=== PATIENT | female | born 1985 | race Caucasian/White ===

== ENCOUNTER 2020-01-12 12:59 | Emergency (ER) | payer SELFPAY ==
[2020-01-12 13:37] VITALS: BP 129/87; PULSE 59; RESP 14; TEMP 36.9; O2SAT 98; BMI 24.0
--- NOTE | 2020-01-12 14:42 | ED_ITS ---
HPI - Wound/Laceration General: Chief Complaint: Wound/Laceration Stated Complaint: finger lac Time Seen by Provider: 01/12/20 14:41 Source: patient Mode of arrival: ambulatory Limitations: no limitations History of Present Illness: HPI narrative: while at work pt had metal piece of jeane slice righg index finger Review of Systems General: Reports: 10 or more systems reviewed and unremarkable except in HPI and below Narrative: laceration to index finger, right PFSH ED PFSH: Social History Smoking and tobacco status: never smoked Physical Exam Const: COMMON NORMALS: no acute distress, patient oriented x3, no limitations and alert GENERAL APPEARANCE: cooperative and comfortable ORIENTATION/CONSCIOUSNESS: Yes awake, Yes oriented to person, Yes oriented to place and Yes oriented to time HENMT: COMMON NORMALS: normocephalic, atraumatic, external ears normal, EAC's normal, TM's normal bilaterally and Normal external nose present HEAD & SCALP: normal to inspection, normocephalic and atraumatic FACE & SINUS: normal facial exam, sinuses nontender and face symmetric NOSE: Normal external nose present, Normal nares present and No nasal discharge present EXTERNAL EAR: Yes external ears normal EXTERNAL AUDITORY CANAL: EAC's normal TYMPANIC MEMBRANE: TM's normal bilaterally MOUTH: Normal oral and palatal mucosa present, lip normal and tongue normal THROAT: posterior oropharynx normal, tonsils normal and uvula midline Eye: COMMON NORMALS: Equal, round and reactive pupils present, EOMs intact bilaterally and conjunctivae normal GENERAL EYE: appearance normal, both eyes and all related structures and normal light reflex EYELID: eyelids normal CONJUNCTIVA: Yes conjunctivae normal PUPIL: Yes Equal, round and reactive pupils present EOM: Yes EOM abnormal DIRECT OPHTHALMOSCOPY: Yes normal light reflex Neck/C-Spine: COMMON NORMALS: full ROM, no lymphadenopathy, supple, no meningeal signs, no JVD and Thyroid normal GENERAL: Yes normal visual inspection THYROID: Thyroid normal CERVICAL SPINE: Yes cervical ROM normal and Yes normal cervical lordosis Lymph: LYMPHATIC: no lymphadenopathy noted Chest: COMMONS NORMALS: normal inspection of the chest and normal palpation of entire chest wall Resp: COMMON NORMALS: normal respiratory effort, No retractions and clear to auscultation bilaterally AUSCULTATION: clear to auscultation bilaterally Cardio: COMMON NORMALS: no JVD, regular rate, regular rhythm, S1 normal heart sound present, S2 normal heart sound present, No gallops present (Cardio), No clicks present (Cardio), No murmurs present (Cardio), No rub (Cardio) and Peripheral pulses 2+ throughout RATE: regular rate RHYTHM: regular rhythm HEART SOUNDS: S1 normal heart sound present and S2 normal heart sound present PERIPHERAL PULSES: Peripheral pulses 2+ throughout GI: COMMON NORMALS: Normal to inspection, nondistended, normoactive bowel sounds present, Soft to palpation, non-tender and no masses PALPATION: Yes Soft to palpation : COMMON NORMALS: Yes no CVA tenderness and Yes normal external appearance BLADDER/KIDNEY EXAM: Yes no CVA tenderness Back/Pelvis: COMMON NORMALS: no CVA tenderness, thoracic and lumbar spine normal to inspection, no thoracic nor lumbar tenderness and thoraco-lumbar ROM normal Extremity: COMMON NORMALS: normal to inspection, full ROM, capillary refill normal, no joint enlargement, no clubbing, cyanosis or edema, no calf tenderness and no pedal edema GENERAL: Yes normal exam except as noted Neuro: COMMON NORMALS: patient oriented x3, moves all extremities, no focal motor deficits, no sensory deficits noted and gait normal SENSORIUM/ORIENTATION: Yes alert, Yes oriented to person, Yes oriented to place and Yes oriented to time MENINGEAL SIGNS: Yes no meningeal signs Psych: COMMON NORMALS: mental status grossly normal, Normal thought process present, cooperative, normal affect, speech normal and activity/motor behavior normal SPEECH: Yes normal speech THOUGHT PROCESS: Normal thought process present Skin: COMMON NORMALS: no rashes or lesions noted, no wounds and turgor normal GENERAL SKIN EXAM: no rashes or lesions noted and turgor normal TRAUMA: laceration (right index finger ) flap Procedures Laceration Laceration 1: Site: hand (right index finger) Side (If applicable): right Size (cm): 3 Description: flap Depth: simple, single layer Local Anesthetic: lidocaine 1% Amount of anesthesia used (mL): 5 Pre-repair: wound explored, irrigated extensively and deep structures intact Skin layer closed with: nylon Size (cm): 4-0 Number of sutures: 6 Technique: simple, interrupted Course ED course: Pt presents to Er with laceration to right index finger from metal roof piece that fell onto her hand; 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 Sutures completed and pt tolerated well. Will proceed with DC and follow up for suture removal in one week. Vital Signs: Vital signs: Vital Signs Temperature 98.5 F 01/12/20 13:37 Pulse Rate 59 L 01/12/20 13:37 Respiratory Rate 14 01/12/20 13:37 Blood Pressure 129/87 01/12/20 13:37 Pulse Oximetry 98 01/12/20 13:37 Discharge Plan Discharge Patient Disposition: Home, Self-Care Clinical Impression: Laceration Condition: Stable Prescriptions: No Action No Known Home Medications RF: 0 Referrals: Marcelle Steiner FNP-C [Primary Care Provider] - Discharge Diet: Usual diet Discharge Activity: Increase activity as tolerated Activity Restrictions/Additional Instructions: Do not go swimming with sutures; keep dry and covered with bacitracin. May have sutures removed in 5 to 7 day. Coding Level of Care Code ED Spline Rolling Machine Job Setter for Alysa Vale
[2020-01-12] MEDS: lidocaine 1% INJ 20 mL INJECTION (14:57)
[2020-01-12 15:36] VITALS: PULSE 68; RESP 18; TEMP 36.6
[2020-01-12] MEDS: neomycin-poly-bacitracin oint 0.9 gm Pkt 1 APPLIC TOPICAL (15:42)
[2020-01-12 16:04] VITALS: PULSE 68; RESP 18; TEMP 36.6; O2SAT 98
== END 2020-01-12 15:56 | disposition home or self-care (01) ==
PROVIDERS: Emergency Provider Nurse Practitioner Family; PCP Nurse Practitioner Family
DX: S61.210A Laceration without foreign body of right index finger without damage to nail, initial encounter (principal); W26.8XXA Contact with other sharp object(s), not elsewhere classified, initial encounter
CPT/HCPCS: 12002; 12345; 99281; 99282; J2001

== ENCOUNTER 2020-11-27 20:44 | Emergency (ER) | payer SELFPAY ==
[2020-11-27 21:05] VITALS: BP 145/86; PULSE 92; RESP 16; TEMP 37.3; O2SAT 100; BMI 24.4
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
--- NOTE | 2020-11-27 21:34 | PC.NURSE ---
pt has bruising and edema to bilateral eyes. pt c/o pain to right shoulder and upper chest and pain to generalized head
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
[2020-11-27 23:15] VITALS: BP 114/89; PULSE 82; RESP 15; TEMP 36.9; O2SAT 99
--- NOTE | 2020-11-28 12:02 | DCPLANNER ---
post exchange manager had message to speak with patient about getting services at [facility]. post exchange manager called phone number [phone] - unable to speak with patient at this time. post exchange manager unable to leave a voicemail for patient due to phone no longer being in service.
== END 2020-11-27 23:18 | disposition home or self-care (01) ==
PROVIDERS: Emergency Provider Emergency Medicine; PCP Nurse Practitioner Family
DX: S09.8XXA Other specified injuries of head, initial encounter (principal); F32.9 Major depressive disorder, single episode, unspecified; Y04.2XXA Assault by strike against or bumped into by another person, initial encounter
CPT/HCPCS: 70450; 70486; 99283

== ENCOUNTER → 2020-12-13 15:04 | Outpatient (BNVA) | payer SELFPAY | PROVIDERS: PCP Nurse Practitioner Family; Visit Provider Otolaryngology | DX: J36 Peritonsillar abscess (principal) | CPT/HCPCS: 87070; 87075; 87205 ==

== ENCOUNTER → 2022-08-24 16:07 | Outpatient (BNVA) | payer MEDICAID, SELFPAY | PROVIDERS: PCP Nurse Practitioner Family; Visit Provider Nurse Practitioner Family | DX: F41.9 Anxiety disorder, unspecified (principal); F32.A Depression, unspecified; Z13.6 Encounter for screening for cardiovascular disorders; Z98.51 Tubal ligation status | CPT/HCPCS: 80053; 80061; 82306; 82607; 84443; 85025 ==

== ENCOUNTER → 2022-09-21 15:36 | Outpatient (BNVA) | payer MEDICAID, SELFPAY | PROVIDERS: PCP Nurse Practitioner Family; Visit Provider Nurse Practitioner Family | DX: R79.89 Other specified abnormal findings of blood chemistry (principal) | CPT/HCPCS: 84439; 84443 ==

== ENCOUNTER 2023-08-13 18:44 | Emergency (ER) | payer OTHER, SELFPAY ==
[2023-08-13 18:55] VITALS: BP 125/80; PULSE 85; RESP 16; TEMP 36.9; O2SAT 100
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
[2023-08-13] MEDS: amoxicillin-clav 875-125 mg Tablet 1 TAB PO (21:30)
[2023-08-13] MEDS: tetanus-dipt-pertussis 0.5 mL SDV IM (21:31)
[2023-08-13 22:07] VITALS: BP 125/80; PULSE 85; RESP 16; TEMP 36.9; O2SAT 100
[2023-08-13 22:37] LABS: HIV 1 & 2 Antibody Non-Reactive (Non-Reactiv); HIV 1 & 2 Antigen Non-Reactive (Non-Reactiv)
[2023-08-13 22:43] LABS: Hepatitis A Antibody IgM Non-Reactive (Nonreactive); Hepatitis B Core AB, Total Non-Reactive (Nonreactive); Hepatitis B Surface Antigen Non-Reactive (Nonreactive); Hepatitis C Virus Antibody Non-Reactive (Nonreactive)
[2023-08-13 23:44] LABS: Hepatitis B Surface AB > 1000.0 (11.5-1000)
== END 2023-08-13 22:31 | disposition home or self-care (01) ==
PROVIDERS: Emergency Provider Physician Assistant; PCP Nurse Practitioner Family
DX: S40.812A Abrasion of left upper arm, initial encounter (principal); S40.022A Contusion of left upper arm, initial encounter; Y04.1XXA Assault by human bite, initial encounter; Y92.129 Unspecified place in nursing home as the place of occurrence of the external cause; Y99.0 Civilian activity done for income or pay; F17.290 Nicotine dependence, other tobacco product, uncomplicated; Z23 Encounter for immunization
CPT/HCPCS: 36415; 86705; 86706; 86709; 86803; 87340; 87806; 90471; 90715; 99283